=== PATIENT | male | born 1940 | race Caucasian/White ===

== ENCOUNTER 2017-02-06 08:54 | Inpatient (IN) | payer MEDICARE, OTHER ==
[2017-02-06] MEDS ORDERED: SODIUM CHLORIDE 0.9% 500 ML IV ONE ×2 (09:00)
[2017-02-06] MEDS ORDERED: diphenhydrAMINE 50 MG/ML 1 ML VIAL IVP ONE (09:09)
[2017-02-06] MEDS ORDERED: MIDAZOLAM 2 MG/2 ML VIAL IV ONE (09:10)
[2017-02-06] MEDS ORDERED: diphenhydrAMINE 50 MG/ML 1 ML VIAL ONE (09:10)
[2017-02-06] MEDS ORDERED: LIDOCAINE 2% INJ 20 MG/ML SQ ONE (09:10)
[2017-02-06] MEDS ORDERED: MIDAZOLAM 2 MG/2 ML VIAL ONE (09:10)
[2017-02-06] MEDS ORDERED: fentaNYL (PF) 50 MCG/ML 2 ML AMP ONE (09:19)
[2017-02-06] MEDS ORDERED: fentaNYL (PF) 50 MCG/ML 2 ML AMP IV ONE (09:20)
[2017-02-06] MEDS ORDERED: BIVALIRUDIN BOLUS 250 MG/50 ML IV ONE (09:23)
[2017-02-06] MEDS ORDERED: BIVALIRUDIN 250 MG in SODIUM CHLORIDE 0.9% 50 ML IV ONE (09:24)
[2017-02-06] MEDS ORDERED: PRASUGREL 10 MG TAB ONE (09:29)
[2017-02-06] MEDS: NITROGLYCERIN 1000MCG/10ML SYRINGE INTRACORON ONE ×2 (09:29→09:32)
[2017-02-06] MEDS ORDERED: PRASUGREL 10 MG TAB PO ONE (09:32)
[2017-02-06] MEDS ORDERED: IOHEXOL 350 MG/ML 100 ML BOTTLE INJ ONE (09:37)
[2017-02-06] MEDS ORDERED: MAG HYDROX/AL HYDROX/SIMETH 30 ML CUP PO PRN (10:00)
[2017-02-06] MEDS ORDERED: RX INFO: IV CONTRAST WAS GIVEN 1 EACH MISC MISCELLANE PRN (10:00)
[2017-02-06] MEDS ORDERED: ATROPINE SULFATE 0.1 MG/ML 10ML SYRINGE IV PRN (10:00)
[2017-02-06] MEDS ORDERED: NITROGLYCERIN SL TABS 0.4 MG TAB SUBLINGUAL PRN (10:00)
[2017-02-06 10:11] LABS: Glucose,Whole Blood 180 mg/dL (75-99)
--- NOTE | 2017-02-06 12:49 | ECHOF ---
Referral Reason:pain/shortness of breath/post procedure MEASUREMENTS -------- HEIGHT: 180.3 cm WEIGHT: 81.6 kg BP: 114/73 IVSd: 1.1 cm (0.6 - 1.1) LVIDd: 2.9 cm (3.9 - 5.3) LVPWd: 1.2 cm (0.6 - 1.1) IVSs: 1.2 cm LVIDs: 2.6 cm LVPWs: 1.1 cm Ao Diam: 3.9 cm (2.0 - 3.7) AV Cusp: 1.1 cm (1.5 - 2.6) LA Diam: 3.9 cm (2.7 - 3.8) MV EXCURSION: 8.677 mm (> 18.000) MV EF SLOPE: 39 mm/s (70 - 150) EPSS: 1.9 cm MV E Jacques: 0.63 m/s MV DecT: 191 ms MV A Jacques: 0.65 m/s MV E/A Ratio: 0.96 AV maxP.49 mmHg AV meanP.45 mmHg RAP: 5.00 mmHg RVSP: 10.82 mmHg FINDINGS -------- Sinus rhythm. This was a technically good study. There is mild concentric left ventricular hypertrophy. Overall left ventricular systolic function is moderately impaired with, an EF between 35 - 40 %. Septal Hypokinesis [place] Hypokinesis. The right ventricle is normal in size and function. The left atrium is normal in size. The right atrium is normal in size. Aortic valve is trileaflet and is mildly thickened. There is mild aortic stenosis present. Peak/mean gradient across the Aortic Valve is 12.49mmHg / 7.45mmHg. The mitral valve leaflets are mildly thickened. Mild mitral regurgitation is present. Mild tricuspid regurgitation present. The right ventricular systolic pressure, as measured by Doppler, is 10.82mmHg. Pulmonic valve appears structurally normal. The aortic root is mildy dilated. The pericardium is normal. CONCLUSIONS -------- 1. Sinus rhythm. 2. Aortic valve is trileaflet and is mildly thickened. 3. There is mild aortic stenosis present. 4. Peak/mean gradient across the Aortic Valve is 12.49mmHg / 7.45mmHg. 5. The mitral valve leaflets are mildly thickened. 6. Mild mitral regurgitation is present. 7. Mild tricuspid regurgitation present. 8. The right ventricular systolic pressure, as measured by Doppler, is 10.82mmHg. 9. Pulmonic valve appears structurally normal. 10. The aortic root is mildy dilated. 11. The pericardium is normal. 12. This was a technically good study. 13. There is mild concentric left ventricular hypertrophy. 14. Overall left ventricular systolic function is moderately impaired with, an EF between 35 - 40 %. 15. Septal Hypokinesis 16. [place] Hypokinesis. 17. The right ventricle is normal in size and function. 18. The left atrium is normal in size. 19. The right atrium is normal in size. ELECTRICAL SYSTEM SPECIALIST: Rafaela Tran RDCS
[2017-02-06] MEDS ORDERED: HYDROcodone/APAP 5-325MG 1 EACH TAB ONE (15:02)
[2017-02-06 16:36] LABS: Glucose,Whole Blood 273 mg/dL (75-99)
[2017-02-06] MEDS: LOSARTAN 25 MG TAB PO SCH (17:03)
[2017-02-06] MEDS: SODIUM CHLORIDE 0.9% 1,000 ML IV SCH ×2 (17:03→20:48)
[2017-02-06] MEDS: HYDROcodone/APAP 5-325MG 1 EACH TAB PO PRN (20:51)
[2017-02-06] MEDS: METOPROLOL TARTRATE 12.5 MG TAB PO SCH (20:51)
[2017-02-06] MEDS: ATORVASTATIN 80 MG TAB PO SCH (20:51)
[2017-02-06] MEDS ORDERED: NON-FORMULARY DRUG (Canagliflozin [Invokana] 100 MG) PO SCH (21:00)
[2017-02-06 21:47] LABS: Glucose,Whole Blood 174 mg/dL (75-99)
[2017-02-07 06:01] LABS: Glucose,Whole Blood 146 mg/dL (75-99)
[2017-02-07 06:42] LABS: Basophils # (A) 0.1 k/uL (0-0.2); Basophils % (A) 1 %; CH 26.3; CHCM 30.9; Eosinophils # (A) 0.3 k/uL (0-0.7); Eosinophils % (A) 2 %; HCT 44.8 % (39.0-53.0); HGB 13.9 gm/dL (13.0-17.5); Hypochromasia Moderate; Luc # (Auto) 0.23; Luc % (Auto) 2; Lymphocytes # (A) 3.5 k/uL (1.0-4.8); Lymphocytes % (A) 31 %; MCH 26.6 pg (25.0-35.0); MCV 85.7 fL (80.0-100.0); Mean Platelet Volume 6.7; Monocytes # (A) 0.6 k/uL (0-1.0); Monocytes % (A) 5 %; Neutrophils # (A) 6.6 k/uL (1.3-7.7); Neutrophils % (A) 59 %; RBC 5.22 m/uL (4.30-5.90); WBC 11.3 k/uL (3.8-10.6); WBC (Perox) 11.45
[2017-02-07 06:54] LABS: ALT 25 U/L (21-72); AST 37 U/L (17-59); Alkaline Phosphatase 61 U/L (38-126); Anion Gap 8 mmol/L; Blood Urea Nitrogen 14 mg/dL (9-20); Calcium 9.5 mg/dL (8.4-10.2); Carbon Dioxide 26 mmol/L (22-30); Chloride 106 mmol/L (98-107); Glucose 156 mg/dL (74-99); Non-African American GFR(MDRD) >60 (>60 ml/min/1.73 sqM); Potassium 4.5 mmol/L (3.5-5.1); Sodium 140 mmol/L (137-145); Total Bilirubin 0.7 mg/dL (0.2-1.3); Total Protein 6.5 g/dL (6.3-8.2)
--- NOTE | 2017-02-07 09:48 | HP ---
DATE OF ADMISSION: 02/06/2017 Tolu Burch is a 76-year-old gentleman who is a retired person, has type 2 diabetes, mild depression, and also gastroesophageal reflux disease. About a year ago he had a stress Cardiolite scan, walked for 5 minutes on standard Gera protocol without any evidence of ischemia and had a normal systolic function. He came into the hospital mainly with complaints of increasing chest pain and shortness of breath. He presented to the [facility] emergency room with chest heaviness and pressure and was found to have anterior ST elevation and was promptly transferred here for evaluation. He was seen by me after his arrival in the emergency room. He had ongoing chest pain and also indicated to me that this started early this morning and woke him up from sleep. There was radiation to both upper extremities. PAST MEDICAL HISTORY: 1. Type 2 diabetes mellitus. 2. Negative stress test about a year ago. 3. Mild depression. Medications at home include: 1. Invokana 100 mg b.i.d. 2. Aspirin 81 mg daily. 3. Zoloft 50 mg daily. 4. Ibuprofen p.r.n. 5. Nexium 40 mg daily. ALLERGIES: None. REVIEW OF SYSTEMS: Unremarkable other than above-mentioned facts. On examination, blood pressure was 120/70, pulse rate is about 90 per minute, regular. HEENT: Unremarkable. Fundus was not examined by me. Neck is supple. There is no JVD. I do not hear a carotid bruit. Heart exam reveals S1 and S2 heard normally. No significant murmurs. Lungs are clear. Abdomen is soft, nontender. Lower extremities reveal diminished pulses. Central nervous system is normal. EKG revealed sinus mechanism with anterior ST elevation, suggestive of ST elevation myocardial infarction. IMPRESSION: 1. Acute anterior ST elevation myocardial infarction. 2. Diabetes mellitus. RECOMMENDATIONS: I recommended prompt cardiac catheterization and intervention and proceeded to perform the procedure expeditiously.
[2017-02-07] MEDS: LOSARTAN 25 MG TAB PO SCH (10:08)
[2017-02-07] MEDS: METOPROLOL TARTRATE 12.5 MG TAB PO SCH ×2 (10:08→20:10)
[2017-02-07] MEDS: ASPIRIN 81 MG CHEW PO SCH (10:08)
[2017-02-07] MEDS: PRASUGREL 10 MG TAB PO SCH (10:09)
[2017-02-07 11:50] LABS: Glucose,Whole Blood 188 mg/dL (75-99)
--- NOTE | 2017-02-07 15:27 | P.PN ---
Subjective Principal diagnosis: ST elevation myocardial infarction of the anterior wall This is a 76-year-old gentleman with history of diabetes, GERD, who actually presented to [facility] with an acute anterior wall ST elevation myocardial infarction. He underwent angioplasty with stenting of the LAD by Dr. Funes. Patient was seen and examined this morning, denied any chest pain or difficulty in breathing. Creatinine 0.8. EKG showed normal sinus rhythm with anterior T-wave inversion. Echocardiogram with Doppler study was performed which revealed an ejection fraction of 35-40%. The patient does have a residual 80% stenosis of the right coronary artery which will be stented as an outpatient. He is hemodynamically stable today. Objective - Vital Signs Vital signs: Vital Signs Temp 98.6 F 02/07/17 11:46 Pulse 71 02/07/17 13:51 Resp 16 02/07/17 11:46 BP 114/69 02/07/17 13:51 Pulse Ox 96 02/07/17 13:51 Intake & Output 02/06/17 02/07/17 02/07/17 18:59 06:59 18:59 Intake Total 436 750 960 Output Total 1000 Balance -564 750 960 Weight 81.647 kg 85.2 kg Intake: IV 436 500 Sodium Chloride 0.9% 1, 500 000 ml @ 100 mls/hr IV . Q10H [facility] Rx#:[id number] Oral 250 960 Output: Urine 1000 Other: Voiding Method Toilet # Voids 1 1 - Exam PHYSICAL EXAMINATION: HEENT: [Head is atraumatic, normocephalic. Pupils equal, round. Neck is supple. There is no elevated jugular venous pressure.] HEART EXAMINATION: [Heart S1, S2 normal. No murmur or gallop heard.] CHEST EXAMINATION:[ Lungs are clear to auscultation and precussion. No chest wall tenderness is noted on palpation or with deep breathing.] ABDOMEN: [ Soft, nontender. Bowel sounds are heard. No organomegaly noted]. Right groin soft, no evidence of any hematoma. EXTREMITIES:[ 2+ peripheral pulses with no evidence of peripheral edema and no calf tenderness noted]. NEUROLOGIC [patient is awake, alert and oriented -3.] . - Labs CBC & Chem 7: 02/07/17 06:21 02/07/17 06:21 Labs: Abnormal Lab Results - Last 24 Hours (Table) 02/06/17 02/06/17 02/06/17 Range/Units 16:34 21:20 21:46 WBC (3.8-10.6) k/uL RDW (11.5-15.5) % Glucose (74-99) mg/dL POC Glucose (mg/dL) 273 H 174 H (75-99) mg/dL Troponin I 5.350 H* (0.000-0.034) ng/mL 02/07/17 02/07/17 02/07/17 Range/Units 05:59 06:21 06:21 WBC 11.3 H (3.8-10.6) k/uL RDW 16.0 H (11.5-15.5) % Glucose 156 H (74-99) mg/dL POC Glucose (mg/dL) 146 H (75-99) mg/dL Troponin I (0.000-0.034) ng/mL 02/07/17 02/07/17 Range/Units 06:21 11:48 WBC (3.8-10.6) k/uL RDW (11.5-15.5) % Glucose (74-99) mg/dL POC Glucose (mg/dL) 188 H (75-99) mg/dL Troponin I 3.220 H* (0.000-0.034) ng/mL Assessment and Plan (1) ST elevation myocardial infarction (STEMI) of anterior wall Status: Acute (2) Presence of stent in LAD coronary artery Status: Acute (3) Hyperlipemia Status: Acute Plan: From cardiology's perspective, we'll continue the patient on his current medications. Encouraged to be up ambulating in the hallway today. Plan for possible discharge home in 24 hours if stable. Stenting of the RCA will be performed as an outpatient. DNP note has been reviewed, I agree with a documented findings and plan of care. Patient was seen and examined.
[2017-02-07 16:12] LABS: Glucose,Whole Blood 209 mg/dL (75-99)
[2017-02-07] MEDS: ATORVASTATIN 80 MG TAB PO SCH (20:10)
[2017-02-07] MEDS: HYDROcodone/APAP 5-325MG 1 EACH TAB PO PRN (20:10)
[2017-02-07 20:41] LABS: Glucose,Whole Blood 224 mg/dL (75-99)
[2017-02-08] MEDS: HYDROcodone/APAP 5-325MG 1 EACH TAB PO PRN ×2 (03:52→12:18)
[2017-02-08 05:56] LABS: Glucose,Whole Blood 128 mg/dL (75-99)
--- NOTE | 2017-02-08 07:17 | CC ---
DATE OF SERVICE: 02/06/2017 PROCEDURE: Left heart catheterization and coronary angiography. PERFORMED BY: Dr. Lourdes Funes. Clinical information: Mr. Tolu Burch is a gentleman, a patient of Dr. Bertin Moser who came to [facility] with chest pain, had anterior ST elevation, was promptly transferred to the golf course laborer. I evaluated him in the golf course laborer, advised prompt cardiac catheterization and proceeded to perform this in the same setting. Risks, benefits, options and rationale were discussed with the patient. PROCEDURE NOTE: Under local anesthesia and strict aseptic precautions, a 6 Occitan introducer was placed in the right femoral artery. Using a standard right Sae catheter, I performed selective coronary angiography of the right coronary artery then I used a JL 4 catheter for selective injection of the left coronary artery, but I could not cannulate it. I changed to a XBLAD 3.5 guide catheter. With this I obtained coronary angiography pictures and proceeded to perform intervention in the same setting. Patient tolerated the procedure well. Stenting of mid LAD was performed expeditiously. I also checked LV pressures but I did not perform an LV gram. CARDIAC CATHETERIZATION FINDINGS: The left ventricular end-diastolic pressure was about 8 to 16 mmHg and there was no gradient across the aortic valve. CORONARY ANGIOGRAPHY FINDINGS: RIGHT CORONARY ARTERY: Technically a very dominant vessel has somewhat of an angular takeoff and an inferior takeoff. Proximally, there is a small 30% narrowing. At the junction of the mid and distal one third, there is a 70% to 75% a discrete eccentric lesion noted, which is quite significant. Beyond this, the caliber improves and the vessel bifurcates into PDA and PLV, both of which supply a fair amount of myocardium. Proximal RCA has a 35% lesion. At the junction of mid and distal RCA, there is a 70% to 80% stenosis. The lesion appears stable and ( ). LEFT MAIN CORONARY ARTERY: A short, patent vessel that is free of significant disease bifurcates into LAD and circumflex. Left main itself is free of significant disease. LEFT ANTERIOR DESCENDING CORONARY ARTERY: This is a somewhat diffusely diseased vessel that gives off a fair diagonal branch that is subtotally occluded. Beyond the diagonal branch, there is a septal branch and after the septal branch there is a long lesion of 95% to 99% with thrombus then another diagonal branch comes off and then there is a sluggish flow all the way distally. LAD is a diseased vessel with a mid lesion of 99% with subtotal occlusion and 2 small diagonals that are highly diseased. LEFT POSTERIOR CIRCUMFLEX CORONARY ARTERY: Technically a nondominant good caliber vessel; gives off 2 obtuse marginal branches that have minor diffuse disease and then continues as a posterolateral branch. The entire circumflex system has plaque, but no significant disease. The lesions are about 30% to 40%. LEFT VENTRICULOGRAM: This was not performed. FINAL IMPRESSION: This patient has significant two-vessel disease. Mid left anterior descending artery is the culprit vessel with subtotal lesion, thrombus and anterior ST segment changes. Right coronary artery is a dominant vessel. Filling pressures are acceptable. LV gram was not performed. RECOMMENDATIONS: I recommend intervention of the LAD and proceeded to perform this in the same setting.
--- NOTE | 2017-02-08 07:23 | PTCA ---
DATE OF SERVICE: 02/06/2017 PROCEDURE: PTCA and stenting of mid LAD performed in a setting of an acute myocardial infarction as a primary procedure. PROCEDURE NOTE: XBLAD 3.5 guide catheter was used to cannulate the ( ). A BMW wire was used to cross the lesion. A 2.5 caliber, 12 mm long Xience stent was deployed. Excellent angiographic result was achieved. There was a significant amount of calcification noted. The second diagonal also had some disease, but the stented area looked beautiful with a very nice angiographic appearance and flow. The distal flow also increase remarkably. The sheath was then taken out and Angio-Seal device used to secure hemostasis and patient was sent to the room in stable condition. Results were discussed with the patient and family. He received Angiomax bolus and infusion as per protocol and also received antiplatelet agent as per protocol. ASSESSMENT: From a pre-PTCA stenosis of 99%, the residual stenosis was 0% with remarkable improvement in angiographic appearance and flow without evident complication. This patient received 1 hour of conscious sedation for his diagnostic and interventional procedure. This was provided with a combination of Versed, Benadryl and Dilaudid. Oxygenation was monitored closely.
[2017-02-08] MEDS ORDERED: INSULIN LISPRO (humaLOG) 300 UNIT/3 ML VIAL SQ SCH (07:30)
[2017-02-08] MEDS: LOSARTAN 25 MG TAB PO SCH (08:46)
[2017-02-08] MEDS: METOPROLOL TARTRATE 12.5 MG TAB PO SCH (08:46)
[2017-02-08] MEDS: ASPIRIN 81 MG CHEW PO SCH (08:46)
[2017-02-08] MEDS: PRASUGREL 10 MG TAB PO SCH (08:47)
[2017-02-08 11:25] VITALS: BP 110/69; PULSE 67; RESP 18; TEMP 97
[2017-02-08 11:54] LABS: Glucose,Whole Blood 179 mg/dL (75-99)
--- NOTE | 2017-02-08 15:12 | P.PN ---
Subjective Principal diagnosis: ST elevation myocardial infarction of the anterior wall This is a 76-year-old gentleman with history of diabetes, GERD, who actually presented to [facility] with an acute anterior wall ST elevation myocardial infarction. He underwent angioplasty with stenting of the LAD by Dr. Funes. Patient was seen and examined this morning, denied any chest pain or difficulty in breathing. EKG showed normal sinus rhythm with anterior T- wave inversion. Echocardiogram with Doppler study was performed which revealed an ejection fraction of 35-40%. The patient does have a residual 80% stenosis of the right coronary artery which will be stented as an outpatient. He is hemodynamically stable today. Objective - Vital Signs Vital signs: Vital Signs Temp 97 F L 02/08/17 11:24 Pulse 67 02/08/17 11:24 Resp 18 02/08/17 11:24 BP 110/69 02/08/17 11:24 Pulse Ox 96 02/08/17 04:00 Intake & Output 02/07/17 02/08/17 02/08/17 18:59 06:59 18:59 Intake Total 1440 960 360 Output Total 500 1150 Balance 940 -190 360 Weight 84.9 kg Intake: Oral 1440 960 360 Output: Urine 500 1150 Other: Voiding Method Toilet Toilet Toilet # Voids 1 # Bowel Movements 1 - Exam PHYSICAL EXAMINATION: HEENT: [Head is atraumatic, normocephalic. Pupils equal, round. Neck is supple. There is no elevated jugular venous pressure.] HEART EXAMINATION: [Heart S1, S2 normal. No murmur or gallop heard.] CHEST EXAMINATION:[ Lungs are clear to auscultation and precussion. No chest wall tenderness is noted on palpation or with deep breathing.] ABDOMEN: [ Soft, nontender. Bowel sounds are heard. No organomegaly noted]. Right groin soft, no evidence of any hematoma. EXTREMITIES:[ 2+ peripheral pulses with no evidence of peripheral edema and no calf tenderness noted]. NEUROLOGIC [patient is awake, alert and oriented -3.] . - Labs CBC & Chem 7: 02/07/17 06:21 02/07/17 06:21 Labs: Abnormal Lab Results - Last 24 Hours (Table) 02/07/17 02/07/17 02/07/17 Range/Units 06:21 16:11 20:40 POC Glucose (mg/dL) 209 H 224 H (75-99) mg/dL Hemoglobin A1c 10.0 H (4.2-6.1) % 02/08/17 02/08/17 Range/Units 05:54 11:52 POC Glucose (mg/dL) 128 H 179 H (75-99) mg/dL Hemoglobin A1c (4.2-6.1) % Assessment and Plan (1) ST elevation myocardial infarction (STEMI) of anterior wall Status: Acute (2) Presence of stent in LAD coronary artery Status: Acute (3) Hyperlipemia Status: Acute Plan: From cardiology's perspective, we'll continue the patient on his current medications. He may be able to be discharged home today from cardiology's perspective. A follow-up appointment will be made with Dr. Caridad Funes in the office post discharge. Patient will be discharged home on aspirin 81 mg daily, Lipitor 80 mg daily, losartan 25 mg daily, metoprolol tartrate 12-1/2 mg one tablet by mouth twice a day, Effient 10 mg daily and sublingual nitroglycerin as needed for chest pain. Patient has been provided prescriptions for all we will medications. He will be brought back for angioplasty and stenting of the right coronary artery in a few weeks. DNP note has been reviewed, I agree with a documented findings and plan of care. Patient was seen and examined.
== END 2017-02-08 15:13 | disposition home or self-care (01) | DRG 247 ==
LOC: 6SEL 09:17
PROVIDERS: ADMIT Internal Medicine Interventional Cardiology; ATTEND Internal Medicine Interventional Cardiology
PROC: 027034Z Dilation of Coronary Artery, One Artery with Drug-eluting Intraluminal Device, Percutaneous Approach (ICD-10-PCS; principal; 2017-02-07)
PROC: 4A023N7 Measurement of Cardiac Sampling and Pressure, Left Heart, Percutaneous Approach (ICD-10-PCS; 2017-02-07)
PROC: B2111ZZ Fluoroscopy of Multiple Coronary Arteries using Low Osmolar Contrast (ICD-10-PCS; 2017-02-07)
DX: I21.09 ST elevation (STEMI) myocardial infarction involving other coronary artery of anterior wall (principal); E11.9 Type 2 diabetes mellitus without complications; F32.9 Major depressive disorder, single episode, unspecified; E78.5 Hyperlipidemia, unspecified; I25.10 Atherosclerotic heart disease of native coronary artery without angina pectoris; K21.9 Gastro-esophageal reflux disease without esophagitis; Z79.82 Long term (current) use of aspirin; Z79.899 Other long term (current) drug therapy
CPT/HCPCS: 80053; 83036; 84484; 85025; 93306; 93458

== ENCOUNTER → 2017-02-17 | Outpatient (CLI) | payer MEDICARE, OTHER ==
[2017-02-17 10:35] LABS: CH 26.5; CHCM 31.5; HCT 48.8 % (39.0-53.0); HDW 2.87; HGB 15.6 gm/dL (13.0-17.5); Hypochromasia Slight; MCH 27.1 pg (25.0-35.0); MCV 84.8 fL (80.0-100.0); Mean Platelet Volume 6.7; RBC 5.75 m/uL (4.30-5.90); RDW 15.3 % (11.5-15.5); WBC 12.3 k/uL (3.8-10.6)
[2017-02-17 10:41] LABS: Anion Gap 12 mmol/L; Blood Urea Nitrogen 24 mg/dL (9-20); Calcium 10.6 mg/dL (8.4-10.2); Carbon Dioxide 25 mmol/L (22-30); Chloride 103 mmol/L (98-107); Glucose 234 mg/dL (74-99); Non-African American GFR(MDRD) >60 (>60 ml/min/1.73 sqM); Potassium 4.6 mmol/L (3.5-5.1); Sodium 140 mmol/L (137-145)
== END ==
LOC: LABWHC1 10:00
PROVIDERS: ATTEND Internal Medicine Interventional Cardiology
DX: I25.10 Atherosclerotic heart disease of native coronary artery without angina pectoris (principal); I10 Essential (primary) hypertension; E11.9 Type 2 diabetes mellitus without complications
CPT/HCPCS: 36415; 80048; 85027

== ENCOUNTER → 2017-03-19 | Outpatient (CLI) | payer MEDICARE, OTHER ==
[2017-03-19 12:00] LABS: CH 26.7; CHCM 30.6; HCT 49.3 % (39.0-53.0); HDW 2.86; HGB 14.9 gm/dL (13.0-17.5); Hypochromasia Moderate; MCH 26.6 pg (25.0-35.0); MCHC 30.2 g/dL (31.0-37.0); Mean Platelet Volume 6.7; RBC 5.61 m/uL (4.30-5.90); RDW 15.7 % (11.5-15.5); WBC 11.2 k/uL (3.8-10.6)
[2017-03-19 12:09] LABS: Anion Gap 11 mmol/L; Blood Urea Nitrogen 16 mg/dL (9-20); Carbon Dioxide 25 mmol/L (22-30); Chloride 105 mmol/L (98-107); Non-African American GFR(MDRD) >60 (>60 ml/min/1.73 sqM); Sodium 141 mmol/L (137-145)
[2017-03-19 12:23] LABS: Potassium 4.8 mmol/L (3.5-5.1)
== END | disposition home or self-care (01) ==
LOC: LABWHC1 11:40
PROVIDERS: ATTEND Internal Medicine Interventional Cardiology
DX: Z01.812 Encounter for preprocedural laboratory examination (principal); I25.10 Atherosclerotic heart disease of native coronary artery without angina pectoris
CPT/HCPCS: 80051; 82565; 84520; 85027

== ENCOUNTER 2017-03-27 05:48 | Day surgery (SDC) | payer MEDICARE, OTHER ==
[2017-03-21 15:37] VITALS: BMI 24.4
[2017-03-27] MEDS ORDERED: SODIUM CHLORIDE 0.9% 1,000 ML in EMPTY BAG 1 BAG IV ONE (06:00)
[2017-03-27] MEDS ORDERED: ALPRAZolam 0.25 MG TAB PO PRN (06:00)
[2017-03-27] MEDS ORDERED: ASPIRIN 325 MG TAB PO ONE (06:00)
[2017-03-27 06:49] VITALS: RESP 18
[2017-03-27 07:02] LABS: Glucose,Whole Blood 155 mg/dL (75-99)
[2017-03-27] MEDS ORDERED: MIDAZOLAM 2 MG/2 ML VIAL ONE (07:21)
[2017-03-27] MEDS ORDERED: LIDOCAINE 2% INJ 20 MG/ML (20 ML MDV) ONE (07:21)
[2017-03-27] MEDS ORDERED: diphenhydrAMINE 50 MG/ML 1 ML VIAL ONE (07:21)
[2017-03-27] MEDS ORDERED: MIDAZOLAM 2 MG/2 ML VIAL IV ONE (07:32)
[2017-03-27] MEDS ORDERED: diphenhydrAMINE 50 MG/ML 1 ML VIAL IVP ONE (07:33)
[2017-03-27] MEDS ORDERED: LIDOCAINE 2% INJ 20 MG/ML SQ ONE (07:35)
[2017-03-27] MEDS ORDERED: BIVALIRUDIN BOLUS 250 MG/50 ML IV ONE (07:46)
[2017-03-27] MEDS ORDERED: BIVALIRUDIN 250 MG in SODIUM CHLORIDE 0.9% 50 ML IV ONE (07:47)
[2017-03-27] MEDS ORDERED: NITROGLYCERIN 1000MCG/10ML SYRINGE INTRACORON ONE (08:02)
[2017-03-27] MEDS ORDERED: PRASUGREL 10 MG TAB ONE (08:07)
[2017-03-27] MEDS ORDERED: HYDROmorphone 2 MG/ML 1 ML SYRINGE ONE (08:08)
[2017-03-27] MEDS ORDERED: HYDROmorphone 2 MG/ML 1 ML SYRINGE IV ONE (08:11)
[2017-03-27] MEDS ORDERED: PRASUGREL 10 MG TAB PO ONE (08:11)
[2017-03-27] MEDS ORDERED: ONDANSETRON 4 MG/2 ML VIAL ONE (08:20)
[2017-03-27] MEDS ORDERED: ONDANSETRON 4 MG/2 ML VIAL IVP ONE (08:21)
[2017-03-27] MEDS ORDERED: ATROPINE SULFATE 0.1 MG/ML 10ML SYRINGE IV PRN (08:23)
[2017-03-27] MEDS ORDERED: NITROGLYCERIN SL TABS 0.4 MG TAB SUBLINGUAL PRN ×3 (08:23→15:14)
[2017-03-27] MEDS ORDERED: MAG HYDROX/AL HYDROX/SIMETH 30 ML CUP PO PRN (08:23)
[2017-03-27] MEDS ORDERED: RX INFO: IV CONTRAST WAS GIVEN 1 EACH MISC MISCELLANE PRN (08:23)
[2017-03-27] MEDS ORDERED: IOHEXOL 350 MG/ML 100 ML BOTTLE INJ ONE (08:28)
[2017-03-27] MEDS ORDERED: HYDROcodone/APAP 5-325MG 1 EACH TAB PO PRN (08:36)
[2017-03-27] MEDS ORDERED: NON-FORMULARY DRUG (Canagliflozin [Invokana] 100 MG) PO SCH (09:00)
[2017-03-27 09:35] LABS: Glucose,Whole Blood 137 mg/dL (75-99)
[2017-03-27 11:55] LABS: Glucose,Whole Blood 174 mg/dL (75-99)
[2017-03-27] MEDS: LOSARTAN 25 MG TAB PO SCH (12:37)
[2017-03-27] MEDS: ASPIRIN 81 MG CHEW PO SCH (12:37)
[2017-03-27] MEDS: PANTOPRAZOLE 40 MG TABLET PO SCH (12:38)
[2017-03-27] MEDS: SERTRALINE 50 MG TAB PO SCH (12:38)
[2017-03-27] MEDS: PIOGLITAZONE 15 MG TAB PO SCH (12:39)
[2017-03-27] MEDS: LORATADINE 10 MG TAB PO SCH (12:39)
[2017-03-27] MEDS: METOPROLOL TARTRATE 12.5 MG TAB PO SCH ×2 (12:39→21:06)
[2017-03-27] MEDS: SODIUM CHLORIDE 0.9% 1,000 ML IV SCH ×2 (17:01→21:06)
[2017-03-27 17:05] LABS: Glucose,Whole Blood 212 mg/dL (75-99)
--- NOTE | 2017-03-27 17:38 | PTCA ---
DATE OF SERVICE: 03/27/2017 PROCEDURE: 1. Coronary angiography of left coronary artery. 2. Percutaneous transluminal coronary angioplasty and stenting of mid/distal dominant right coronary artery with a drug-eluting stent. PERFORMED BY Dr. Lourdes Funes. CLINICAL INFORMATION: Mr. Tolu Burch is a 76-year-old gentleman with a history of type 2 diabetes, hypertension, hyperlipidemia, who presented with an acute MS on February 06, underwent stenting of mid LAD, which was a culprit lesion. He is known to have distal LAD disease as well. He also had significant disease involving the dominant RCA and was advised intervention in elective fashion and brought in for the procedure today. PROCEDURE NOTE: Under strict aseptic precautions and local anesthesia, a 6 Georgian introducer was placed in the right femoral artery. Using a standard left Sae diagnostic catheter, I performed selective coronary angiography of the left system and noted that the LAD was widely patent without significant disease at the site of previous stenting. Distally there was about 60% stenosis noted, but I felt that this was very similar to the previous angiogram as well and therefore no intervention would be required for the distal LAD disease. I then turned my attention to the right coronary artery. I used a multi-purpose guide catheter to cannulate the right coronary artery and a BMW wire was used to cross the lesion. A 2.5 caliber, 12 mm long NC Trek balloon was used to predilate the lesion. I then deployed a 12 mm long, 2.75 caliber Xience stent at 12 atmospheres. Patient had chest pain and mild inferior ST elevation. Excellent angiographic result was achieved. He received Angiomax bolus and infusion. He also received additional Effient 10 mg. He had already Effient 10 mg and aspirin 81 mg earlier today. The sheath was then taken out and a Perclose device used to secure hemostasis. Patient developed some vasovagal episode with transient hypotension and bradycardia because of the Perclose placement and mild pressure on the groin for oozing. The groin pressure was relieved. He received IV fluids and his blood pressure was back in the 110s with a heart rate of 60 beats per minute. His symptoms of nausea resolved. He received 1 mg of Zofran also. There was good hemostasis of the groin. Excellent angiographic result of the mid/distal RCA was achieved. The residual stenosis was 0%. Patient was stable at the time of transfer to the telemetry unit. Excellent angiographic result without complication was noted. The patient received conscious sedation with a combination of Versed and Benadryl for a total duration of 45 minutes. He was monitored closely and his oxygen saturation was within normal limits. Results were then discussed with the patient and family. I expect he will be discharged tomorrow if he remains stable.
--- NOTE | 2017-03-27 17:40 | LTR ---
March 27, 2017 RE: Tolu Burch Dilshad Dear Dr. Moser, Thank you for the opportunity to participate in the care of Mr. Tolu Burch. Please find enclosed my detailed PTCA report for your records. I performed stenting of the dominant RCA with excellent angiographic result. He also has distal LAD disease, which will be treated medically. I expect he will be discharged tomorrow if he remains stable. Circumflex does not have significant disease. Proximal RCA has about a 40% stenosis, which I believe was not significant. Thank you for your referral. Please call with questions. With kindest regards. Sincerely, CHRISTIANO ANN MD
[2017-03-27 20:53] LABS: Glucose,Whole Blood 198 mg/dL (75-99)
[2017-03-27] MEDS ORDERED: ZOLPIDEM 5 MG TAB PO PRN (21:00)
[2017-03-27] MEDS ORDERED: ATORVASTATIN 80 MG TAB PO SCH (21:00)
[2017-03-27] MEDS ORDERED: INSULIN LISPRO (humaLOG) 300 UNIT/3 ML VIAL SQ SCH (21:04)
[2017-03-28 05:55] LABS: Basophils # (A) 0.1 k/uL (0-0.2); Basophils % (A) 1 %; CH 26.2; CHCM 30.5; Eosinophils # (A) 0.4 k/uL (0-0.7); Eosinophils % (A) 3 %; HCT 41.3 % (39.0-53.0); Hypochromasia Moderate; Luc # (Auto) 0.27; Luc % (Auto) 3; Lymphocytes % (A) 28 %; MCH 27.1 pg (25.0-35.0); MCHC 31.4 g/dL (31.0-37.0); MCV 86.5 fL (80.0-100.0); Mean Platelet Volume 6.7; Monocytes # (A) 0.6 k/uL (0-1.0); Monocytes % (A) 6 %; Neutrophils # (A) 6.3 k/uL (1.3-7.7); Neutrophils % (A) 60 %; RBC 4.77 m/uL (4.30-5.90); RDW 15.6 % (11.5-15.5); WBC 10.6 k/uL (3.8-10.6); WBC (Perox) 10.79
[2017-03-28 06:13] LABS: Anion Gap 6 mmol/L; Blood Urea Nitrogen 19 mg/dL (9-20); Calcium 9.6 mg/dL (8.4-10.2); Carbon Dioxide 26 mmol/L (22-30); Chloride 108 mmol/L (98-107); Glucose 148 mg/dL (74-99); Non-African American GFR(MDRD) >60 (>60 ml/min/1.73 sqM); Potassium 5.5 mmol/L (3.5-5.1); Sodium 140 mmol/L (137-145)
[2017-03-28 06:15] LABS: Glucose,Whole Blood 134 mg/dL (75-99)
--- NOTE | 2017-03-28 08:20 | DS ---
DATE OF ADMISSION: 03/27/2017 DATE OF DISCHARGE: 03/28/2017 DIAGNOSES: 1. Unstable angina with a recent anterior myocardial infarction. 2. Hypertension. 3. Hypercholesterolemia. 4. Type 2 diabetes mellitus. PROCEDURES PERFORMED: Coronary angiography to check patency of LAD and stenting of mid/distal RCA with a drug-eluting stent. Mr. Burch was brought in electively for a staged PCI of RCA. This procedure was performed uneventfully with excellent angiographic result. Postprocedure course was unremarkable. He had a transient vasovagal episode after the intervention. He had uneventful night. He was comfortably without symptoms. This morning, he is asymptomatic. His right groin is clean and dry. Blood pressure is 118/70, pulse rate is about 70 per minute. There is no JVD or carotid bruit. S1, S2 heard normally. Lungs are clear. Abdomen and lower extremity exam was unchanged. Laboratory data was reviewed. Potassium is slightly high at 5.5. This may be a reflection of his diabetes. We will increase hydration and repeat a potassium level at 10 a.m. and if this is normal, he can be discharged. I encouraged him to take increased oral fluids. His platelet count, CBC and BUN and creatinine are all within normal limits. Discharge instructions regarding activity, diet and medications were given and I will see the patient this Sunday in the office. He will resume metformin tomorrow.
[2017-03-28] MEDS ORDERED: PRASUGREL 10 MG TAB PO SCH (09:00)
[2017-03-28] MEDS: PIOGLITAZONE 15 MG TAB PO SCH (10:04)
[2017-03-28] MEDS: LOSARTAN 25 MG TAB PO SCH (10:04)
[2017-03-28] MEDS: METOPROLOL TARTRATE 12.5 MG TAB PO SCH (10:04)
[2017-03-28] MEDS: ASPIRIN 81 MG CHEW PO SCH (10:04)
[2017-03-28] MEDS: SERTRALINE 50 MG TAB PO SCH (10:05)
[2017-03-28] MEDS: PANTOPRAZOLE 40 MG TABLET PO SCH (10:05)
[2017-03-28] MEDS: LORATADINE 10 MG TAB PO SCH (10:05)
[2017-03-28 11:58] LABS: Glucose,Whole Blood 159 mg/dL (75-99)
[2017-03-28 12:44] VITALS: BP 129/69; PULSE 60; TEMP 96.6
[2017-03-28 13:09] LABS: Hemoglobin A1C 9.8 % (4.2-6.1)
== END 2017-03-28 12:46 | disposition home or self-care (01) ==
LOC: CATHCVL 05:48 → 6SEL 08:10 → CATHCVL 03-28 12:46
PROVIDERS: ATTEND Internal Medicine Interventional Cardiology
DX: I25.110 Atherosclerotic heart disease of native coronary artery with unstable angina pectoris (principal); E78.00 Pure hypercholesterolemia, unspecified; I10 Essential (primary) hypertension; E11.9 Type 2 diabetes mellitus without complications; R55 Syncope and collapse; I25.2 Old myocardial infarction; Z79.82 Long term (current) use of aspirin; Z79.899 Other long term (current) drug therapy; Z95.5 Presence of coronary angioplasty implant and graft; Z87.891 Personal history of nicotine dependence
CPT/HCPCS: 80048; 83036; 84132; 85025; 93454; 99152; 99153 ×2; C9600; C1769 ×2; C1887; C1725; C1894; C1874; C1760; J2001; J2250; J1170; J1200; Q9967; J2405; J0583

== ENCOUNTER 2018-09-24 13:47 | Emergency (ER) | payer OTHER, MEDICARE ==
[2018-09-24 14:33] VITALS: RESP 18; TEMP 97.9
--- NOTE | 2018-09-24 15:57 | ED ---
General Adult HPI - General Chief complaint: ENT Stated complaint: FB in ear Time Seen by Provider: 09/24/18 15:40 Source: patient, RN notes reviewed Mode of arrival: ambulatory Limitations: no limitations - History of Present Illness Initial comments: Patient 78-year-old male presented to the emergency room today with a chief complaint foreign body to the right ear. Patient does admit that he uses a hearing aide. States he went to take a hearing aid out without realizing that a piece of rubber tip broke off. He states he try to put another urinate and believes he pushed it back farther. He states he did try to follow-up the family doctor and was advised coming here to emergency room if they do not have the proper equipment. Patient denies any other complaints. - Related Data Home Medications Medication Instructions Recorded Confirmed Aspirin [Adult Low Dose Aspirin EC] 81 mg PO DAILY 04/20/16 03/27/17 Canagliflozin [Invokana] 100 mg PO BID 04/20/16 03/27/17 Esomeprazole Magnesium [NexIUM] 40 mg PO DAILY 02/06/17 03/27/17 Sertraline [Zoloft] 50 mg PO DAILY 02/06/17 03/27/17 Cetirizine HCl [Zyrtec] 10 mg PO DAILY 03/21/17 03/27/17 Hydrocodone/Acetaminophen [[place] 1 tab PO Q8HR PRN 03/21/17 03/27/17 5-325] Metoprolol Tartrate [Lopressor] 12.5 mg PO BID 03/21/17 03/27/17 Pioglitazone [Actos] 15 mg PO DAILY 03/21/17 03/27/17 metFORMIN HCL [Metformin HCl] 500 mg PO BID 03/21/17 03/27/17 Previous Rx's Medication Instructions Recorded Atorvastatin [Lipitor] 80 mg PO HS #30 tab 02/08/17 Losartan [Cozaar] 25 mg PO DAILY #30 tab 02/08/17 Nitroglycerin Sl Tabs [Nitrostat] 0.4 mg SUBLINGUAL Q5M PRN #25 tab 02/08/17 Prasugrel [Effient] 10 mg PO DAILY #30 tab 02/08/17 Amoxicillin 500 mg PO Q8H 10 Days day 09/24/18 Ofloxacin 0.3% Otic Soln [Floxin 5 drops RIGHT EAR BID 7 Days ml 09/24/18 0.3% Otic Soln] Allergies Allergy/AdvReac Type Severity Reaction Status Date / Time No Known Allergies Allergy Verified 09/24/18 14:28 Review of Systems ROS Statement: Those systems with pertinent positive or pertinent negative responses have been documented in the HPI. ROS Other: All systems not noted in ROS Statement are negative. Past Medical History Past Medical History: Coronary Artery Disease (CAD), Cancer, Diabetes Mellitus, GERD/Reflux, Hearing Disorder / Deafness, Myocardial Infarction (MD), Skin Disorder Additional Past Medical History / Comment(s): hx skin cancer, VARICOSE VEINS. [place] Last Myocardial Infarction Date:: 02/06/17 History of Any Multi-Drug Resistant Organisms: None Reported Past Surgical History: Ear Surgery, Heart Catheterization With Stent Additional Past Surgical History / Comment(s): MORAIMA CATARACTS. MORAIMA EYELID SURG. COLONOSCOPY. Past Anesthesia/Blood Transfusion Reactions: No Reported Reaction Date of Last Stent Placement:: 02/06/17 Past Psychological History: Anxiety Smoking Status: Never smoker Past Alcohol Use History: None Reported Past Drug Use History: None Reported - Past Family History Mother Family Medical History: Cancer General Exam - General Exam Comments Initial Comments: General: The patient is awake and alert, in no distress, and does not appear acutely ill. Eye: There is normal conjunctiva bilaterally. No signs of icterus. Ears, nose, mouth and throat: There are moist mucous membranes and no oral lesions. Patient does have some black rubber earbud in the right ear. Musculoskeletal: Normal ROM, no tenderness. Strength 5/5. Sensation intact. Pulses equal bilaterally 2+. Neurological: A&O x 3. CN II-XII intact, There are no obvious motor or sensory deficits. Coordination appears grossly intact. Speech is normal. Skin: Skin is warm and dry and no rashes or lesions are noted. Psychiatric: Cooperative, appropriate mood & affect, normal judgment. Limitations: no limitations Course Vital Signs 09/24/18 14:28 Temperature 97.9 F Pulse Rate 87 Respiratory 18 Rate Blood Pressure 124/89 O2 Sat by Pulse 98 Oximetry Procedures - Procedures Initial comment: Patient's right ear was anesthetized with 1% lidocaine in the ear canal. Alligator forceps were used to grab the rubber foreign body and it was removed intact. The TM was checked behind and there is evidence for infection. Patient will be started on antibiotic eardrops. Medical Decision Making - Medical Decision Making Patient's foreign body was removed but there is evidence for an infection. He does admit that the foreign body was in the ear over the last 4 days. Disposition Clinical Impression: Foreign body in right ear Disposition: HOME SELF-CARE Condition: Good Instructions: Ear Foreign Body (ED) Additional Instructions: Please use antibiotics as prescribed and follow-up the family doctor over the next 2 days. Return to emergency room for any other concerns. Prescriptions: Amoxicillin 500 mg PO Q8H 10 Days day Ofloxacin 0.3% Otic Soln [Floxin 0.3% Otic Soln] 5 drops RIGHT EAR BID 7 Days ml Is patient prescribed a controlled substance at d/c from ED?: No Referrals: Bertin Moser MD [Primary Care Provider] - 1-2 days Time of Disposition: 16:16
[2018-09-24 16:24] VITALS: BP 128/72; PULSE 75
== END 2018-09-24 16:23 | disposition home or self-care (01) ==
LOC: EC 13:47
DX: T16.1XXA Foreign body in right ear, initial encounter (principal); I25.10 Atherosclerotic heart disease of native coronary artery without angina pectoris; E11.9 Type 2 diabetes mellitus without complications; K21.9 Gastro-esophageal reflux disease without esophagitis; I25.2 Old myocardial infarction; F41.9 Anxiety disorder, unspecified; Z79.82 Long term (current) use of aspirin; Z85.828 Personal history of other malignant neoplasm of skin; Z79.84 Long term (current) use of oral hypoglycemic drugs; Z79.899 Other long term (current) drug therapy; Z95.5 Presence of coronary angioplasty implant and graft
CPT/HCPCS: 69200; 99282

== ENCOUNTER 2021-10-20 05:53 | Day surgery (SDC) | payer MEDICARE, OTHER ==
[2021-10-18 10:08] VITALS: BMI 25.0
[2021-10-20] MEDS ORDERED: LACTATED RINGERS 1,000 ML IV SCH (06:42)
[2021-10-20] MEDS ORDERED: LIDOCAINE 1% (10MG/ML) FOR IV START INTRADERMA ONE (06:57)
[2021-10-20 07:07] VITALS: TEMP 97.8
[2021-10-20] MEDS ORDERED: PROPOFOL 10 MG/ML 20 ML VIAL IV ONE (07:09)
[2021-10-20 07:12] LABS: Glucose,Whole Blood 159 mg/dL (75-99)
--- NOTE | 2021-10-20 07:18 | P.PCN ---
Date of Procedure: 10/20/21 Procedure(s) Performed: BRIEF HISTORY: Patient is a 81-year-old, pleasant, white male scheduled for an upper endoscopy as a part of evaluation of long-standing history of GERD. For the last 3-4 months he is been having severe epigastric pain and heartburn. He is on Nexium 40 mg daily.. PROCEDURE PERFORMED: Esophagogastroduodenoscopy With biopsy PREOPERATIVE DIAGNOSIS: GERD with worsening symptoms for the last 3-4 months. IV sedation per anesthesia. PROCEDURE: After informed consent was obtained, the patient was brought into the endoscopy unit. IV sedation was administered by Anesthesia under continuous monitoring. Initially the Olympus GIF-140 video endoscope was inserted into the mouth. Esophagus intubated without any difficulty. It was gradually advanced into the stomach and duodenum and carefully examined. The bulb and the second part of the duodenum appeared normal. The scope at this time was withdrawn to the stomach, adequately insufflated with air, and upon careful examination, mucosa of the antrum, had mild mottling of the mucosa in the prepyloric area which was biopsied. The body, cardia and the fundus appeared normal. The scope was then withdrawn into the esophagus. The GE junction was located at 41 cm from the incisors. The esophagus appeared normal. biopsies were done from the distal esophagus. There were no erosions or ulcerations seen and the patient tolerated the procedure well. IMPRESSION: 1. Minimal antral gastritis. 2. Normal-appearing esophagus with no evidence of esophagitis or Sosa's esophagus. RECOMMENDATIONS: The findings of this examination were discussed with the patient as well as his family. He was advised to follow with the biopsy results. He will continue with Nexium 40 mg daily and use [id number] antacids as needed.
[2021-10-20 07:44] VITALS: BP 137/78; PULSE 53; RESP 17
== END 2021-10-20 08:14 | disposition home or self-care (01) ==
LOC: ORWHC2ENDO 05:53
PROVIDERS: ATTEND Internal Medicine Gastroenterology
DX: K29.70 Gastritis, unspecified, without bleeding (principal); I25.10 Atherosclerotic heart disease of native coronary artery without angina pectoris; Z95.5 Presence of coronary angioplasty implant and graft; E11.9 Type 2 diabetes mellitus without complications; K21.9 Gastro-esophageal reflux disease without esophagitis; F32.A Depression, unspecified; Z97.2 Presence of dental prosthetic device (complete) (partial); Z98.42 Cataract extraction status, left eye; Z98.41 Cataract extraction status, right eye; Z79.84 Long term (current) use of oral hypoglycemic drugs; Z79.02 Long term (current) use of antithrombotics/antiplatelets; Z79.891 Long term (current) use of opiate analgesic; Z79.899 Other long term (current) drug therapy
CPT/HCPCS: 88305; 43239; J2704

== ENCOUNTER → 2024-02-01 | Outpatient (CLI) | payer MEDICARE ==
[2024-02-01 16:05] LABS: ALT 33 U/L (10-49); AST 25 U/L (14-35); Albumin 4.1 g/dL (3.8-4.9); Albumin/Globulin Ratio 1.58 Ratio (1.60-3.17); Alkaline Phosphatase 112 U/L (41-126); Blood Urea Nitrogen 13.2 mg/dL (9.0-27.0); Calcium 11.2 mg/dL (8.7-10.3); Carbon Dioxide 23.5 mmol/L (21.6-31.8); Chloride 108 mmol/L (96-109); Globulin 2.6 g/dL (1.6-3.3); Glucose 157 mg/dL (70-110); Potassium 4.6 mmol/L (3.5-5.5); Sodium 143 mmol/L (135-145); Total Bilirubin 0.6 mg/dL (0.3-1.2); Total Protein 6.7 g/dL (6.2-8.2)
== END | disposition home or self-care (01) ==
LOC: LABWHC1 11:17
PROVIDERS: ATTEND Internal Medicine Endocrinology, Diabetes & Metabolism
DX: E11.65 Type 2 diabetes mellitus with hyperglycemia (principal); E83.52 Hypercalcemia
CPT/HCPCS: 36415; 80053; 82306; 83970

== ENCOUNTER 2024-10-06 07:25 | Emergency (ER) | payer MEDICARE ==
[2024-10-06 07:39] VITALS: RESP 18
--- NOTE | 2024-10-06 07:57 | ED ---
General Adult HPI - General Chief complaint: Urogenital Stated complaint: Groin pain Time Seen by Provider: 10/06/24 07:27 Source: patient, RN notes reviewed, old records reviewed Mode of arrival: EMS Limitations: no limitations - History of Present Illness Initial comments: 84-year-old male with left hip and groin pain after a fall which occurred yeste rday. Patient states he was able to ambulate after the fall but has developed worsening pain in the left hip and groin. Patient denies head or neck trauma. Denies chest or abdominal pain. Denies urinary symptoms. - Related Data Home Medications Medication Instructions Recorded Confirmed Metoprolol Tartrate [Lopressor] 25 mg PO QAM 03/21/17 10/20/21 metFORMIN HCL [Metformin HCl] 500 mg PO BID 03/21/17 10/20/21 Clopidogrel [Plavix] 75 mg PO DAILY 10/18/21 10/20/21 Desvenlafaxine [Desvenlafaxine ER] 50 mg PO DAILY 10/18/21 10/20/21 Esomeprazole Magnesium [NexIUM] 40 mg PO DAILY 10/18/21 10/20/21 Gabapentin [Neurontin] 100 mg PO QAM 10/18/21 10/20/21 Glimepiride [Amaryl] 2 mg PO [id number]-[id number] 10/18/21 10/20/21 sitaGLIPtin PHOSPHATE [Januvia] 100 mg PO DAILY 10/18/21 10/20/21 traMADol HCL [Ultram] 50 - 100 mg PO Q6HR PRN 10/18/21 10/20/21 Previous Rx's Medication Instructions Recorded Atorvastatin [Lipitor] 80 mg PO HS #30 tab 02/08/17 Losartan [Cozaar] 25 mg PO DAILY #30 tab 02/08/17 Nitroglycerin Sl Tabs [Nitrostat] 0.4 mg SUBLINGUAL Q5M PRN #25 tab 02/08/17 HYDROcodone/APAP 5-325MG [[place] 1 tab PO Q6HR PRN #12 tab 10/06/24 5-325] Allergies Allergy/AdvReac Type Severity Reaction Status Date / Time No Known Allergies Allergy Verified 10/06/24 07:39 Review of Systems ROS Statement: Those systems with pertinent positive or pertinent negative responses have been documented in the HPI. ROS Other: All systems not noted in ROS Statement are negative. Past Medical History Past Medical History: Coronary Artery Disease (CAD), Cancer, Diabetes Mellitus, GERD/Reflux, Hearing Disorder / Deafness, Myocardial Infarction (RI), Skin Disorder Additional Past Medical History / Comment(s): hx skin cancer, VARICOSE VEINS. [place], abdominal pain and nausea, constipation and irregular bowel movements, Last Myocardial Infarction Date:: 02/06/17 History of Any Multi-Drug Resistant Organisms: None Reported Past Surgical History: Ear Surgery, Heart Catheterization With Stent Additional Past Surgical History / Comment(s): MORAIMA CATARACTS. MORAIMA EYELID SURG. COLONOSCOPY. Past Anesthesia/Blood Transfusion Reactions: No Reported Reaction Date of Last Stent Placement:: 02/06/17 Past Psychological History: No Psychological Hx Reported Smoking Status: Former smoker Past Alcohol Use History: None Reported Past Drug Use History: None Reported - Past Family History Mother Family Medical History: Cancer Additional Family Medical History / Comment(s): lung General Exam Limitations: no limitations General appearance: alert, in no apparent distress Head exam: Present: atraumatic, normocephalic Eye exam: Present: normal appearance, PERRL ENT exam: Present: normal exam Neck exam: Present: normal inspection Respiratory exam: Present: normal lung sounds bilaterally. Absent: respiratory distress, wheezes Cardiovascular Exam: Present: regular rate, normal rhythm GI/Abdominal exam: Present: soft. Absent: distended, tenderness Extremities exam: Absent: full ROM (Pain with range of motion of the left hip, distal pulses intact, no gross deformity) Neurological exam: Present: alert, oriented X3 Psychiatric exam: Present: normal affect, normal mood Skin exam: Present: warm, dry, intact Course Vital Signs 10/06/24 10/06/24 07:33 09:00 Temperature 98 F Pulse Rate 93 84 Respiratory 18 18 Rate Blood Pressure 153/97 147/88 O2 Sat by Pulse 98 96 Oximetry Medical Decision Making - Medical Decision Making Was pt. sent in by a medical professional or institution (, PA, POST OFFICE MANAGER, urgent care, hospital, or group home...) When possible be specific @ -No Did you speak to anyone other than the patient for history (EMS, parent, family, police, friend...)? What history was obtained from this source @ -Patient's and daughters Did you review nursing and triage notes (agree or disagree)? Why? @ -I reviewed and agree with nursing and triage notes Were old charts reviewed (outside hosp., previous admission, EMS record, old EKG, old radiological studies, urgent care reports/EKG's, group home records)? Report findings @ -No old charts were reviewed Differential Musculoskeletal Muscular strain, contusion, ligament sprain, fracture, arthritis, septic arthritis, bursitis, cellulitis, muscle spasm, nerve compression, DVT, arterial occlusion, herpes zoster, electrolyte abnormality, tumor.... This is not meant to be in all inclusive list EKG interpreted by me (3pts min.). @ -As above X-rays interpreted by me (1pt min.). @ -X-ray of the left hip and pelvis is negative for displaced fracture CT interpreted by me (1pt min.). @I did obtain CT imaging of the abdomen pelvis which was negative for acute abnormality U/S interpreted by me (1pt. min.). @ -None done What testing was considered but not performed or refused? (CT, X-rays, U/S, labs)? Why? @ -None What meds were considered but not given or refused? Why? @ -None Did you discuss the management of the patient with other professionals (professionals i.e. , PA, POST OFFICE MANAGER, lab, RT, psych nurse, social economist, test worker, teacher, workplace rehabilitation officer, insurance case manager)? Give summary @ -No Was smoking cessation discussed for >3mins.? @ -No Was critical care preformed (if so, how long)? @ -No Were there social determinants of health that impacted care today? How? (Homelessness, low income, unemployed, alcoholism, drug addiction, transportation, low edu. Level, literacy, decrease access to med. care, fci, rehab)? @ -No Was there de-escalation of care discussed even if they declined (Discuss DNR or withdrawal of care, Hospice)? DNR status @ -No What co-morbidities impacted this encounter? (DM, HTN, Smoking, COPD, CAD, Cancer, CVA, ARF, Chemo, Hep., AIDS, mental health diagnosis, sleep apnea, morbid obesity)? @ -None Was patient admitted / discharged? Hospital course, mention meds given and route, prescriptions, significant lab abnormalities, going to OR and other pertinent info. @ -[84-year-old male with minor fall which occurred yesterday, left hip pain. X-rays negative, pain was persistent and moderate to severe. CT was ordered which was also negative. Patient was noted to have a leukocytosis of uncertain etiology. He has no fever or infectious symptoms. [facility] 1 week. Patient ambulated in the emergency department and will requesting discharge. Undiagnosed new problem with uncertain prognosis? @ -No Drug Therapy requiring intensive monitoring for toxicity (Heparin, Nitro, Insulin, Cardizem)? @ -No Were any procedures done? @ -No Diagnosis/symptom? @Groin strain, leukocytosis Acute, or Chronic, or Acute on Chronic? @ -Acute Uncomplicated (without systemic symptoms) or Complicated (systemic symptoms)? @ -Default Side effects of treatment? @ -No Exacerbation, Progression, or Severe Exacerbation? @ -No Poses a threat to life or bodily function? How? (Chest pain, [place], RI, pneumonia, PE, COPD, DKA, ARF, appy, cholecystitis, CVA, Diverticulitis, Homicidal, Suicidal, threat to staff... and all critical care pts) @ -No - Lab Data Result diagrams: 10/06/24 08:07 10/06/24 08:07 Lab Results 10/06/24 10/06/24 10/06/24 Range/Units 08:07 08:07 08:07 WBC 19.9 H (3.8-10.6) k/uL RBC 5.61 (4.30-5.90) m/uL Hgb 15.4 (13.0-17.5) gm/dL Hct 48.0 (39.0-53.0) % MCV 85.6 (80.0-100.0) fL MCH 27.5 (25.0-35.0) pg MCHC 32.1 (31.0-37.0) g/dL RDW 16.1 H (11.5-15.5) % Plt Count 306 (150-450) k/uL MPV 9.1 Neutrophils % 74 % Lymphocytes % 16 % Monocytes % 8 % Eosinophils % 1 % Basophils % 0 % Neutrophils # 14.7 H (1.3-7.7) k/uL Lymphocytes # 3.2 (1.0-4.8) k/uL Monocytes # 1.6 H (0-1.0) k/uL Eosinophils # 0.1 (0-0.7) k/uL Basophils # 0.1 (0-0.2) k/uL Hypochromasia Slight Anisocytosis Slight PT 10.8 (10.0-12.5) sec INR 1.0 (<1.2) APTT 25.6 (22.0-30.0) sec Sodium 140 (137-145) mmol/L Potassium 4.7 (3.5-5.1) mmol/L Chloride 108 H (98-107) mmol/L Carbon Dioxide 23 (22-30) mmol/L Anion Gap 9 mmol/L BUN 18 (9-20) mg/dL Creatinine 1.07 (0.66-1.25) mg/dL Est GFR (CKD-EPI)AfAm 74 (>60 ml/min/1.73 sqM) Est GFR (CKD-EPI)NonAf 64 (>60 ml/min/1.73 sqM) Glucose 145 H (74-99) mg/dL Calcium 11.0 H (8.4-10.2) mg/dL Total Bilirubin 0.9 (0.2-1.3) mg/dL AST 28 (17-59) U/L ALT 22 (4-49) U/L Alkaline Phosphatase 121 (38-126) U/L Total Protein 7.5 (6.3-8.2) g/dL Albumin 4.2 (3.5-5.0) g/dL Urine Color Urine Appearance (Clear) Urine pH (5.0-8.0) Ur Specific [place] (1.001-1.035) Urine Protein (Negative) Urine Glucose (UA) (Negative) Urine Ketones (Negative) Urine Blood (Negative) Urine Nitrite (Negative) Urine Bilirubin (Negative) Urine Urobilinogen (<2.0) mg/dL Ur Leukocyte Esterase (Negative) 10/06/24 Range/Units 10:05 WBC (3.8-10.6) k/uL RBC (4.30-5.90) m/uL Hgb (13.0-17.5) gm/dL Hct (39.0-53.0) % MCV (80.0-100.0) fL MCH (25.0-35.0) pg MCHC (31.0-37.0) g/dL RDW (11.5-15.5) % Plt Count (150-450) k/uL MPV Neutrophils % % Lymphocytes % % Monocytes % % Eosinophils % % Basophils % % Neutrophils # (1.3-7.7) k/uL Lymphocytes # (1.0-4.8) k/uL Monocytes # (0-1.0) k/uL Eosinophils # (0-0.7) k/uL Basophils # (0-0.2) k/uL Hypochromasia Anisocytosis PT (10.0-12.5) sec INR (<1.2) APTT (22.0-30.0) sec Sodium (137-145) mmol/L Potassium (3.5-5.1) mmol/L Chloride (98-107) mmol/L Carbon Dioxide (22-30) mmol/L Anion Gap mmol/L BUN (9-20) mg/dL Creatinine (0.66-1.25) mg/dL Est GFR (CKD-EPI)AfAm (>60 ml/min/1.73 sqM) Est GFR (CKD-EPI)NonAf (>60 ml/min/1.73 sqM) Glucose (74-99) mg/dL Calcium (8.4-10.2) mg/dL Total Bilirubin (0.2-1.3) mg/dL AST (17-59) U/L ALT (4-49) U/L Alkaline Phosphatase (38-126) U/L Total Protein (6.3-8.2) g/dL Albumin (3.5-5.0) g/dL Urine Color Light Yellow Urine Appearance Clear (Clear) Urine pH 6.0 (5.0-8.0) Ur Specific [place] 1.042 H (1.001-1.035) Urine Protein Negative (Negative) Urine Glucose (UA) 4+ H (Negative) Urine Ketones Negative (Negative) Urine Blood Negative (Negative) Urine Nitrite Negative (Negative) Urine Bilirubin Negative (Negative) Urine Urobilinogen <2.0 (<2.0) mg/dL Ur Leukocyte Esterase Negative (Negative) Disposition Clinical Impression: Strain of left groin, Leukocytosis Disposition: HOME SELF-CARE Condition: Fair Instructions (If sedation given, give patient instructions): Groin Strain (ED), Leukocytosis (ED) Additional Instructions: Please have your primary care provider repeat blood testing because your white blood cell count was elevated today. Prescriptions: HYDROcodone/APAP 5-325MG [[place] 5-325] 1 tab PO Q6HR PRN #12 tab PRN Reason: Pain Is patient prescribed a controlled substance at d/c from ED?: No Referrals: Bertin Moser MD [Primary Care Provider] - 1-2 days Time of Disposition: 11:06
[2024-10-06] MEDS: KETOROLAC 15 MG/ML 1 ML VIAL IVP STA (08:00)
[2024-10-06] MEDS: HYDROmorphone 0.5 MG/0.5 ML SYRINGE IVP STA ×2 (08:00→09:16)
[2024-10-06 08:19] LABS: Anisocytosis Slight; Basophils # (A) 0.1 k/uL (0-0.2); Basophils % (A) 0 %; Eosinophils # (A) 0.1 k/uL (0-0.7); Eosinophils % (A) 1 %; HGB 15.4 gm/dL (13.0-17.5); Hypochromasia Slight; Lymphocytes # (A) 3.2 k/uL (1.0-4.8); Lymphocytes % (A) 16 %; MCH 27.5 pg (25.0-35.0); MCHC 32.1 g/dL (31.0-37.0); MCV 85.6 fL (80.0-100.0); Mean Platelet Volume 9.1; Monocytes # (A) 1.6 k/uL (0-1.0); Monocytes % (A) 8 %; Neutrophils # (A) 14.7 k/uL (1.3-7.7); Neutrophils % (A) 74 %; Platelet Count 306 k/uL (150-450); RBC 5.61 m/uL (4.30-5.90); RDW 16.1 % (11.5-15.5); WBC 19.9 k/uL (3.8-10.6)
--- NOTE | 2024-10-06 08:28 | XR ---
EXAMINATION TYPE: XR Hip LT and AP Pelvis DATE OF EXAM: 10/06/2024 8:23 AM COMPARISON: None. CLINICAL INDICATION: Male, 84 years old with history of pain after fall, TECHNIQUE: 2 view(s) obtained left hip supplemented with AP pelvis. FINDINGS: Femoral heads articulate with the acetabulum. Joint spaces are preserved. Symphysis pubis and sacroil iac joints are normal. Left hip articulates with the acetabulum. Cam deformity is present. No acute osseous abnormality evid ent. IMPRESSION: 1. No acute osseous abnormality left hip [facility], , 10/06/2024 8:26 AM
[2024-10-06 08:33] LABS: Partial Thromboplastin Time 25.6 sec (22.0-30.0); Prothrombin Time 10.8 sec (10.0-12.5)
[2024-10-06 08:53] LABS: ALT 22 U/L (4-49); AST 28 U/L (17-59); African American GFR (CKD) 74 (>60 ml/min/1.73 sqM); Albumin 4.2 g/dL (3.5-5.0); Alkaline Phosphatase 121 U/L (38-126); Anion Gap 9 mmol/L; Blood Urea Nitrogen 18 mg/dL (9-20); Carbon Dioxide 23 mmol/L (22-30); Chloride 108 mmol/L (98-107); Glucose 145 mg/dL (74-99); Non-African American GFR(CKD) 64 (>60 ml/min/1.73 sqM); Potassium 4.7 mmol/L (3.5-5.1); Sodium 140 mmol/L (137-145); Total Bilirubin 0.9 mg/dL (0.2-1.3); Total Protein 7.5 g/dL (6.3-8.2)
[2024-10-06 10:33] LABS: Appearance,Urine Clear (Clear); Bilirubin,Urine Negative (Negative); Blood,Urine Negative (Negative); Color,Urine Light Yellow; Glucose,Urine (UA) 4+ (Negative); Ketones,Urine Negative (Negative); Leukocyte Esterase,Urine Negative (Negative); Nitrite,Urine Negative (Negative); Protein,Urine Negative (Negative); Specific Gravity,Urine 1.042 (1.001-1.035); Urobilinogen,Urine <2.0 mg/dL (<2.0)
--- NOTE | 2024-10-06 10:33 | CT ---
EXAMINATION TYPE: CT abdomen pelvis wo con DATE OF EXAM: 10/06/2024 9:38 AM COMPARISON: 05/28/2012 CLINICAL INDICATION: Male, 84 years old with history of Left groin pain, Left groin pain TECHNIQUE: Axial images were obtained from above the diaphragm to the pubic rami in the axial plane a t 5 mm thick sections. Reconstructed images are reviewed on the computer in the coronal plane. CONTRAST: mL of . Study performed without Oral Contrast DLP: 691.8 mGycm, Automated exposure control for dose reduction was used. FINDINGS: Limited CT sections are obtained the lung bases. The lung bases are clear. CT ABDOMEN: Liver: Normal Spleen: Atrophic, diminished from comparison Pancreas: Atrophic Adrenal glands: The adrenal glands are normal. Gallbladder: Normal Kidneys: No masses are evident. No hydronephrosis is present. No cysts are present. No renal stone s are evident. Aorta: Vascular calcification is within the aorta. Inferior vena cava: Normal. CT PELVIS: No suspicious inguinal hernia is evident. No suspicious adenopathy. Loops of bowel within the abdomen and pelvis are normal. A few diverticuli are present without infla mmatory change adjacent to suggest acute diverticulitis. Study is without oral contrast limiting ev aluation. Appendix: Normal as visualized. Urinary bladder: Normal. Genitourinary structures: Prostate is unremarkable. Osseous structures: No suspicious lytic or sclerotic lesions. IMPRESSION: 1. No suspicious abnormalities account for left inguinal pain. 2. Diverticulosis without acute diverticulitis. 3. Pancreas and splenic atrophy. [facility], , 10/06/2024 10:30 AM
[2024-10-06 11:32] VITALS: BP 111/65; PULSE 92; TEMP 97.9
== END 2024-10-06 11:31 | disposition home or self-care (01) ==
LOC: EC 07:25
DX: S39.011A Strain of muscle, fascia and tendon of abdomen, initial encounter (principal); D72.829 Elevated white blood cell count, unspecified; Z87.891 Personal history of nicotine dependence; X58.XXXA Exposure to other specified factors, initial encounter
CPT/HCPCS: 36415; 80053; 85025; 85610; 85730; 81003; 73502; 74176; 99284; 96374; 96375; 96376; J1885; J1171